=== PATIENT | female | born 1935 | race Caucasian/White ===

== ENCOUNTER 2024-08-16 10:43 | Outpatient (RCR) | payer MEDICARE, OTHER, SELFPAY ==
[2024-08-16 11:03] VITALS: BP 126/53
[2024-08-16] MEDS: RECLAST 100 IV (11:11)
[2024-08-16 11:37] VITALS: BP 139/49
== END 2024-08-17 10:42 | disposition home or self-care (01) ==
LOC: OID 10:43
PROVIDERS: ATTENDING PHYSICIAN Internal Medicine Endocrinology, Diabetes & Metabolism; FAMILY PHYSICIAN Family Medicine
DX: M81.0 Age-related osteoporosis without current pathological fracture (principal)
CPT/HCPCS: 96365; J3489